=== PATIENT | male | born 1955 | race Caucasian/White ===

== ENCOUNTER 2024-12-02 13:26 | Outpatient (CLI) | payer MEDICARE, BC ==
--- NOTE | 2024-12-03 04:14 | RADIOLOGY REPORT ---
CLINICAL INDICATION: PAIN IN LEFT SHOULDER. COMPARISON: None TECHNIQUE: Multiplanar, multisequence MRI of the left shoulder was performed without contrast. Contrast: None FINDINGS: Glenohumeral joint: There is no fracture or bone marrow edema. Alignment is maintained. The humeral head is high-riding. There osteophytes along the medial humeral head. No focal articular cartilage d efect. There is no joint effusion or synovitis. Acromioclavicular joint: The acromioclavicular joint space is maintained with capsular distention an d osteophyte formation on both sides of the joint. There is a type 2 acromion. Rotator cuff and bursae: There supraspinatus full-thickness full width tear. Infraspinatus full-thic kness, full width tear. Subscapularis tendon is intact. Teres minor tendon is also intact. There i s no regional muscle atrophy. Fluid decompresses freely into the subacromial subdeltoid bursa from the glenohumeral joint through the full-thickness rotator cuff tears. Biceps tendon and glenoid labrum: The long head biceps tendon is located within the bicipital groove and intact. The labrum izabella chronic degeneration and tear of the anterior and posterior segme nts as well as inferior and superior segments. IMPRESSION: 1. Supraspinatus and infraspinatus full-thickness, full width retracted tears. 2. Glenohumeral and acromioclavicular joint arthritis. 3. 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 Glenohumeral joint arthrosis.
== END 2024-12-02 23:59 | disposition home or self-care (01) ==
LOC: MRI02 13:26
PROVIDERS: ATTEND Family Medicine Sports Medicine
DX: S43.432A Superior glenoid labrum lesion of left shoulder, initial encounter (principal); M75.121 Complete rotator cuff tear or rupture of right shoulder, not specified as traumatic; M25.512 Pain in left shoulder; M77.9 Enthesopathy, unspecified; M19.012 Primary osteoarthritis, left shoulder; X58.XXXA Exposure to other specified factors, initial encounter; Y93.9 Activity, unspecified; Y92.89 Other specified places as the place of occurrence of the external cause; Y99.8 Other external cause status
CPT/HCPCS: 73221